=== PATIENT | male | born 1960 | race Caucasian/White ===

== ENCOUNTER 2024-10-09 12:28 | Outpatient (CLI) | payer OTHER, SELFPAY ==
--- NOTE | ~2024-10-09 | US_ITS ---
EXAMINATION: US FNA w image guidance DATE: 10/09/2024 13:41 INDICATION: Thyroid nodule. TECHNIQUE: The procedure and its benefits and risks were discussed with the patient. Risks specifically discusse d included bleeding. The patient verbalized understanding of the risks and agreed to proceed. The nec k was prepped and draped in the usual sterile manner. 1% lidocaine was used for local anesthesia. 6 passes were made with a 25G needle into the lesion under ultrasound guidance. There were no immedia te complications. FINDINGS: Grayscale ultrasound images demonstrate needles advanced into a 1.7 cm nodule in inferior right thyro id lobe for biopsy. IMPRESSION: 1. Ultrasound-guided fine needle aspiration of a right thyroid nodule. Reviewed, dictated and finalized at location A. TION SUPERVISOR
--- OUTSIDE RECORDS SUMMARY | 2024-10-09 14:06 | XMS_ITS | Encounter Summary ---
Author Organization [facility] Address [address] [place] [address] Care Team Providers Care Workforce Manager Name Role Phone Gabbi Parsons APRN Primary Care Provider +1- [phone] Encounter Details Date Type Department Care Team (Late st Contact Info) Description 02/05/2023 Abstract [facility] [address] Alden Guevara MA Social History Tobacco Use Types Packs/Day Years Used Date Smoking Tobacco: Former Cigarettes 2 44 1 976 - 2020 Pipe Cigars Smokeless Tobacco: Never Alcohol Use Standard Drinks/Week Comments Yes 0 (1 standard drink = 0.6 oz pure alcohol) up to a 24 pack of beer per week- depends on the day or week AUDIT-C Answer Date Recorded Frequency of Alcohol Consumption 4 or more times a week 10/28/2018 Average Number of Drinks 3 or 4 019 Frequency of Binge Drinking Less than monthly PHQ-2 Answer Date Recorded Patient Health Questionnaire-2 Score 0 12/11/2022 Education Answer Date Recorded What is the highest level of school you have completed or the highest degree you have received? Some college, no degree 10/28/2018 Sex and Gender Information Value Date Recorded Sex Assigned at Not on file Legal Sex Male 5:25 PM CDT Gender Identity Not on file Sexual Orientation Not on file COVID-19 Exposure Response Date Recorded In the last 10 days, have yo u been in contact with someone who was confirmed or suspected to have Coronavirus/COVID-19? Unable to assess 01/21/2023 2:07 PM CDT documented as of this encounter Plan of Treatment Upcoming Encounters Date Type Department Care Team (Late st Contact Info) Description 11/23/2024 11:20 AM CDT Office Visit [facility] - [place] [address] [place] [address] Gabbi Parsons, LUIS MIGUEL [address] [facility] [address] [place] [address] 02/05/2025 11:20 AM CDT Office Visit [facility] Multispecialty Care - [facility] [address] [facility] [place] [address] Wili Andrade DO [address] [facility] [address] [place] [address] 05/28/2025 9:30 AM CDT Office Visit [facility] [address] [place] [phone] Chris Vera MD [address] [place] [address] documented as of this encounter Procedures Procedure Name Priority Date/Time Associated Diagnosis Comments BNP Routine 02/04/2023 BASIC METABOLIC PANEL Routine 02/04/2023 documented in this encounter Results * BNP (02/04/2023) B TYPE NATRIURETIC PEPTIDE 7 02/04/2023 Narrative Resulting Agency Comment us Default History Genericprovider LABORATORY Edited Result - Final * BASIC METABOLIC PANEL (02/04/2023) SODIUM S/P/B 140 POTASSIUM S/P/B 3.9 CO2 31 CHLORIDE S/P/B 101 GLUCOSE 128 mg/dL CALCIUM S/P/B 9.0 BUN 15 CREATININE S/P/B 1.07 0.7 - 1.3 EGFR NON-AFR. AMER. 79 <=90 02/04/2023 us Default History Genericprovider LABORATORY Final Result documented in this encounter Visit Diagnoses Not on filedocumented in this encounter Additional Health Concerns Assessment Noted Time PHQ-9 Depression Total Score: 1 11/24/19 23 2:37 PM CDT documented as of this encounter Care Teams Workforce Manager Relationship Specialty Start Date End Date Gabbi Parsnos APRN [address] [facility] [address] [place] [id number] PCP - General NURSE PRACTITIONER 12/07/22 documented as of this encounter
--- OUTSIDE RECORDS SUMMARY | 2024-10-09 14:06 | XMS_ITS | Encounter Summary ---
Author Organization [facility] Address [address] [place] [address] Care Team Providers Care Grey Goods Marker Name Role Phone Gabbi Parsons APRN Primary Care Provider +1- [phone] Encounter Details Date Type Department Care Team (Late st Contact Info) Description 03/01/2023 [employer] Shopping Cart Software Message Enc [facility], [address] [address] [place], [facility] Provider Stress test Social History Tobacco Use Types Packs/Day Years [...] on file Sexual Orientation Not on file documented as of this encounter Plan of Treatment Upcoming Encounters Date Type Department Care Team (Late st Contact Info) Description 11/23/2024 11:20 AM CDT Office Visit [facility] Family & Internal Medicine - [place] [address] [place] [address] Gabbi Parsons APRN [address] [facility] [address] [place] [address] 02/05/2025 11:20 AM CDT Office Visit [facility] - [facility] [address] [facility] [place] [address] Wili Andrade DO [address] [facility] [address] [place] [address] 05/28/2025 9:30 AM CDT Office Visit [facility] [address] [place] [phone] Chris Vera MD [address] [facility] [address] [place] [address] documented as of this encounter Visit Diagnoses Not on filedocumented in this encounter Additional Health Concerns Assessment Noted Time PHQ-9 Depression Total Score: 1 11/24/19 2:37 PM CDT documented as of this encounter Care Teams Grey Goods Marker Relationship Specialty Start Date End Date Gabbi Parsons APRN [address] [facility] [address] [place] [address] PCP - General NURSE PRACTITIONER 12/07/22 documented as of this encounter
--- OUTSIDE RECORDS SUMMARY | 2024-10-09 14:06 | XMS_ITS | Encounter Summary ---
Author Organization [facility] Address [address] [place] [address] Care Team Providers Care Invasive Manager Name Role Phone Gabbi Parsons APRN Primary Care Provider +1- [phone] Encounter Details Date Type Department Care Team (Late Contact Info) Description 03/01/2023 [employer] Message Enc [facility], [address] [address] [facility] Provider CTA scoring Social History Tobacco Use Types Packs/Day Years [...] Description 11/23/2024 11:20 AM CDT Office Visit [facility] Medicine - [place] [address] [place] [address] Gabbi Parsons APRN [address] [facility] [address] [place] [address] 02/05/2025 11:20 AM CDT Office Visit [facility] Multispecialty Care - [facility] [address] [facility] [place] [address] Wili Andrade DO [address] [facility] [address] [place] [address] 05/28/2025 9:30 AM CDT Office Visit [facility] [address] [place] [phone] Chris Vera MD [address] [facility] [place] [address] documented as of this encounter Visit Diagnoses Not on filedocumented in this encounter Additional Health Concerns Assessment Noted Time PHQ-9 Depression Total Score: 1 11/24/19 2:37 PM CDT documented as of this encounter Care Teams Invasive Manager Relationship Specialty Start Date End Date Gabbi Parsons APRN [address] [facility] [address] [place] [address] PCP - General NURSE PRACTITIONER 12/07/22 documented as of this encounter
--- OUTSIDE RECORDS SUMMARY | 2024-10-09 14:06 | XMS_ITS | Clinical Summary ---
Author Organization [facility] Address [address] [place] [address] Care Team Providers Care Knitter Operator Name Role Phone Gabbi Parsons APRN Primary Care Provider [phone] Allergies Active Allergy Reactions Criticality Noted Date Comments Morphine Hallucinations Medium 01/23/2013 Becomes angry Medications aspirin EC (ECOTRIN) 81 MG tablet Take 1 tablet (81 mg total) by mouth daily. 6 Active Cyanocobalamin (VITAMIN B12) 1000 MCG Tab CR Take 1 tablet by mouth daily. 7 Active Multiple Vitamin (ONE-A-DAY MENS) Tab Take 1 tablet by mouth daily. 6 Active fish oil 1000 MG Cap capsule Take 2 capsules (2,000 mg total) by mouth daily. Active albuterol sulfate HFA 108 (90 Base) MCG/ACT inhalerIndicatio ns:Centrilobular emphysema (CMS/HCC HHS/HCC),DAUGHERTY (dyspnea on exertion) Inhale 2 puffs into the lungs every 6 (six) hours as needed for Wheezing. 6.7 g 6 4 Active spironolactone (ALDACTONE) 25 MG tablet TAKE 1 TABLET(25 MG) BY MOUTH DAILY 90 tablet 3 4 Active tirzepatide (ZEPBOUND) 2.5 MG/0.5ML injectionIndicat ions:Weight Loss Inject 2.5 mg into the skin once a week. Indications: Weight Loss 6.5 mL 5 Active budesonide-glyco pyrrolate-formot nicolasa (Mappyfriends) 160-9-4.8 MCG/ACT inhalerIndicatio ns:Chronic obstructive pulmonary disease, unspecified COPD type ([facility]) Inhale 2 puffs into the lungs 2 (two) times a day. 10.7 g 3 5 Active Active Problems Problem Noted Date Diagnosed Date Thyroid nodule 08/25/2024 Bilateral carpal tunnel syndrome 02/29/2024 Assessment & Plan (02/29/2024 3:32 PM CDT): Recommendation at this time, we went over the risks and benefits, as well as the alternatives. All questions are answered. Before working up his neck, he would like to proceed with his wrist, get the carpal tunnel and Guyon canal released on the left wrist. We will have him follow up after that. If there's no significant improvement then we can certainly get him set up for an MRI of his neck. 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 Steroid is injected today. Meloxicam 15 mg once daily. We offered splinting but he has a fairly large wrist and hand operations probably would not fit. Follow-up in 6 weeks if no significant improvement. Extensor intersection syndrome of left wrist Assessment & Plan (11/03/2021 9:04 PM CDT): We will treat the de Quervain's first. Patient would like to avoid splinting. Begin meloxicam. Abnormal blood sugar 10/18/2019 Bronchitis 10/18/2019 Right foot pain 06/08/2019 Plantar fasciitis of right foot 06/08/2019 BMI 50.0-59.9, adult ([facility]) 9 Hyperthyroidism 10/29/2018 Hypoparathyroidism, unspecif ied hypoparathyroidism type ([facility]) 10/28/2018 Vitamin D deficiency 03/09/2017 Arthritis 01/25/2017 Bulge of lumbar disc without myelopathy 01/26/20 17 Degenerative disc disease, lumbar 01/25/2017 Spondylolisthesis, grade 1 01/25/2017 Sciatica 12/17/2016 Obesity 09/11/2016 Anemia 03/09/2016 Vitamin B12 deficiency 03/06/2016 Eczema 09/13/2015 Hyperlipidemia 02/06/2013 Resolved Problems Problem Noted Date Diagnosed Date Resolved Date Prostate cancer screening 10/18/2019 Encounters Date Type Department Care Team Description 09/19/2024 11:46 AM SENIOR PAYROLL MANAGER - 09/19/2024 11:59 PM SENIOR PAYROLL MANAGER Hospital Encounter [facility] Ultrasound [address] [place] [address] Ky Morataya MD Discharge Disposition: Home or Self Care (Routine Discharge) 09/19/2024 Travel 09/06/2024 Scan Proxeon INFO SRVCS Scanned, [facility] 08/25/2024 8:20 AM SENIOR PAYROLL MANAGER Office Visit [facility] [address] [phone] Gabbi Parsons APRN Follow Up (Discuss weight loss and medications) 08/25/2024 Travel 08/07/2024 Orders Only [facility] [address] [phone] Gabbi Parsons APRN 07/27/2024 10:23 AM SENIOR PAYROLL MANAGER - 07/27/2024 11:59 PM SENIOR PAYROLL MANAGER Hospital Encounter [facility] Occupational Therapy [address] [place] [address] Gabbi Parsons APRN Smith, Kimberly M, OT Hand Pain Discharge Disposition: Home or Self Care (Routine Discharge) 07/27/2024 Travel 07/25/2024 10:41 AM SENIOR PAYROLL MANAGER - 07/25/2024 11:59 PM SENIOR PAYROLL MANAGER Hospital Encounter [facility] [address] [address] [address] Ky Morataya MD Discharge Disposition: Home or Self Care (Routine Discharge) 07/25/2024 Travel 07/24/2024 9:50 AM SENIOR PAYROLL MANAGER - 07/24/2024 11:59 PM SENIOR PAYROLL MANAGER Hospital Encounter [facility] [address] [place] [address] Gabbi Parsons APRN Smith, Kimberly M, OT Hand Pain Discharge Disposition: Home or Self Care (Routine Discharge) 07/24/2024 Travel 07/21/2024 9:59 AM SENIOR PAYROLL MANAGER - 07/21/2024 11:59 PM SENIOR PAYROLL MANAGER Hospital Encounter [facility] [address] [place] [address] Gabbi Parsons APRN Smith, Kimberly M, OT Hand Pain Discharge Disposition: Home or Self Care (Routine Discharge) 07/21/2024 Travel 07/19/2024 [facility] [address] [phone] Wili Andrade DO Orders 07/18/2024 10:00 AM SENIOR PAYROLL MANAGER - 07/18/2024 11:59 PM SENIOR PAYROLL MANAGER Hospital Encounter [facility] [id number] [place] [address] Gabbi Parsons APRN Smith, Kimberly M, OT Hand Pain Discharge Disposition: Home or Self Care (Routine Discharge) 07/18/2024 Travel 07/11/2024 11:06 AM SENIOR PAYROLL MANAGER - 07/11/2024 11:59 PM SENIOR PAYROLL MANAGER Hospital Encounter [facility] [address] [place] [address] Gabbi Parsons APRN Smith, Kimberly M, OT Hand Pain Discharge Disposition: Home or Self Care (Routine Discharge) 07/11/2024 Travel from Last 3 Months Immunizations Name Administration Dates Next Due Hepatitis A (Havrix [address]) 11/24/1996,1995 Influenza (Generic) 06/14/2002, 1,08/04/2000,06/19,05/22/1998,06/18/1997 MMR (MMRII) 02/03/1994 MODERNA COVID-19 (12+) MRNA, LNP-S, PF, 100 MCG/ 0.5 ML DOSE 09/30/2021,09/02/2021 Meningococcal (Menomune) 02/22/1997 Polio Opv (Generic) 11/22/1985 Td (TDVAX) 03/06/2002,04/16/1992 Td (Tenivac) preservative free 08/16/2006 Typhoid Vaccine, Akd 05/16/1984 Typhoid Vi Polysaccharide Va cc 25 Mcg/0.5Ml Im Soln 03/15/2000,05/22/1998,04/19/1996 Yellow Fever (YF- Vax) 04/19/1996 Family History Medical History Relation Comments No Known Problems Father degenerative eye disease Mother Cancer Sister Breast and bone Relation Status Comments Father Mother Alive Sister Social History Tobacco Use Types Packs/Day Years Used Date Smoking Tobacco: Former Cigarettes Q uit: 1999 Pipe Cigars Smokeless Tobacco: Never Tobacco Cessation:Counseling Given: Yes Alcohol Use Standard Drinks/Week Comments Yes 20 (1 standard drink = 0.6 oz pure alcohol) up to a 24 pack of beer per week- depends on the day or week AUDIT-C Answer Date Recorded Frequency of Alcohol Consumption 4 or more times a week 10/28/2018 Average Number of Drinks 3 or 4 019 Frequency of Binge Drinking Less than monthly PHQ-2 Answer Date Recorded Patient Health Questionnaire-2 Score 0 08/25/2024 Education Answer Date Recorded What is the highest level of school you have completed or the highest degree you have received? Some college, no degree 10/28/2018 Sex and Gender Information Value Date Recorded Sex Assigned at Not on file Legal Sex Male 5:25 PM CDT Gender Identity Not on file Sexual Orientation Not on file Last Filed Vital Signs Vital Sign Reading Time Taken Comments Blood Pressure 136/86 08/25/2024 8:13 AM SENIOR PAYROLL MANAGER Pulse 75 08/25/2024 8:13 AM SENIOR PAYROLL MANAGER Temperature 36.5 C (97.7 F) 08/25/2024 8:13 AM SENIOR PAYROLL MANAGER Respiratory Rate 22 08/25/2024 8:13 AM SENIOR PAYROLL MANAGER Oxygen Saturation 97% 08/25/2024 8:13 AM SENIOR PAYROLL MANAGER Inhaled Oxygen Concentration - - Weight 170.6 kg (376 lb) 08/25/2024 8:13 AM SENIOR PAYROLL MANAGER Height 185.4 cm (6' 1 ) 08/25/2024 8:13 AM SENIOR PAYROLL MANAGER Body Mass Index 49.61 08/25/2024 8:13 AM SENIOR PAYROLL MANAGER Plan of Treatment Upcoming Encounters Date Type Department Care Team (Late st Contact Info) Description 11/23/2024 11:20 AM CDT Office Visit [facility] - [place] [address] [place] [phone] Gabbi Parsons APRN [address] [facility] [address] [place], [place] [phone] 02/05/2025 11:20 AM CDT Office Visit [facility] - [facility] [place] [address] [place] [phone] Wili Andrade DO [address] [place] [address] 05/28/2025 9:30 AM CDT Office Visit [facility] [address] [place] [phone] Chris Vera MD [address] [place], [place] [phone] Health Maintenance Due Date Last Done Comments Pneumococcal Vaccine: Pediatrics (0 to 5 Years) and At-Risk Patients (6 to 64 Years) (1 of 2 - PCV) 1967 Hepatitis C 1979 Annual Physical 06/02/2022 06/02/2021 COVID-19 Vaccine ( season) 2024 09/30/2021, 09/02/2021 Influenza Adult (#1) 2024 06/14/2002, 05/31/2001, 08/04/2000, Additional history exists DTaP, Tdap and Td Vaccines (1 - Tdap) 01/17/2025 08/16/2006, 03/06/2002, 04/16/1992 Postponed from 08/17/2006 (Patient Refused) RSV Immunization or 60+ Years (1 - Risk 60-74 years 1-dose series) 01/17/2025 Postponed fro m 2021 (Patient Refused) Zoster Vaccines (1 of 2) 01/17/2025 Pos tponed from 2011 (Patient Refused) Colorectal Cancer Screening Colonoscopy (10 Years) 05/04/2027 05/04/2017 Meningococcal Vaccine Aged Out 02/22/1997 No velia alyssa eligible based on patient's age to complete this topic PHQ-2 (Physician [place]) Completed 08/25/2024 Meningococcal B Vaccine Aged Out No l onger eligible based on patient's age to complete this topic RSV Immunizations Under 20 Months Aged Out No longer eligible based on patient's age to complete this topic Medical Devices Implanted Type Area Daytime Babysitter Device Identifier Shelf Expiration Date Model / Serial / Lot Screw Screw Right: Finger Procedures Procedure Name Priority Date/Time Associated Diagnosis Comments US THYROID Routine 09/19/2024 12:56 PM SENIOR PAYROLL MANAGER Thyrotoxicosis Non-toxic multinodular goiter US GD THYROID FINE NDL ASPIR Routine 07/25/2024 11:52 AM SENIOR PAYROLL MANAGER Multiple thyroid nodules CYTOLOGY GENERIC Routine 07/25/2024 12:0 0 AM SENIOR PAYROLL MANAGER Multiple thyroid nodules COLONOSCOPY GENERIC (SCAN ORDER) Routine 05/04/2017 from Last 3 Months or Most Recently Relevant to Health Maintenance Results * US THYROID (09/19/2024 12:56 PM SENIOR PAYROLL MANAGER) Anatomical Region Laterality Modality Neck Ultrasound 09/22/2024 5:04 PM SENIOR PAYROLL MANAGER Impressions 09/22/2024 5:14 PM SENIOR PAYROLL MANAGER IMPRESSION: 1. Bilateral thyroid nodules as above. Interval decrease in size of dominant nodule in inferior left lobe, status post biopsy. ACR TI-RADS recommendations: TR5, highly suspicious (greater than or equal to 7 points) - FNA if greater than or equal to 1 cm, follow-up if 0.5-0.9 cm every year for 5 years TR4, moderately suspicious (4-6 points) - FNA if greater than or equal to 1.5cm, follow-up if 1-1.4 cm in 1, 2, 3 and 5 years TR3, mildly suspicious (3 points) - FNA if greater than or equal to 2.5cm, follow-up if 1.5-2.4 cm in 1, 3 and 5 years TR2, not suspicious (2 points) and TR1, benign (0 points) - No FNA or follow-up * ACR TI-RADS recommends no more than two nodules with the highest ACR TI-RADS total point should be biopsied and no more than four nodules should be followed. ACR TI-RADS (Thyroid Imaging and Reporting Data System) is a structured system for interpreting and reporting thyroid imaging studies with management guidelines. https://www.acr.org/Clinical-Resources/Ubtfnkuzt-rzq-Ectk-Systems/TI-RADS Ordered By: KY MORATAYA Interpreted By: Reba Tafoya, 09/22/2024 5:04 PM Narrative 09/22/2024 5:14 PM SENIOR PAYROLL MANAGER [facility] [address] [place] [address] IMAGING STUDIES: US THYROID DATE: 09/19/2024 12:01 PM CLINICAL HISTORY: Thyrotoxicosis. Nontoxic multinodular goiter. BENIGN BIOPSY OF LARGEST NODULE IN THE LEFT LOBE ON 07/25/2024 Comparison: 07/25/2024. 03/02/2024 FINDINGS: RIGHT THYROID GLAND MEASURES 6.9 x 2.9 x 2.8 cm. LEFT THYROID GLAND MEASURES 6.9 x 3.4 x 3.8 cm. HETEROGENEOUS ECHOTEXTURE TO THE THYROID GLAND. GROSSLY NORMAL COLOR FLOW. WITHIN THE INFERIOR RIGHT LOBE OF THE THYROID GLAND THERE ARE 2 ADJACENT FAIRLY WELL-DEFINED INTERMEDIATE ECHOGENIC SOLID NODULES. NO ABNORMAL COLOR FLOW. NO DISTINCT ECHOGENIC FOCI.. LARGEST MEASURES 1.9 X 1.4 X 1.6 CM. PRIOR MEASUREMENT OF 1.6 X 1.6 X 1.7 CM. TR 3. FOLLOW-UP BELOW.. WITHIN THE INFERIOR LEFT LOBE, THERE IS SLIGHTLY ILL-DEFINED HYPERECHOIC NODULE. NO ABNORMAL COLOR FLOW. THIS WAS THE NODULE THAT WAS BIOPSIED. NO ECHOGENIC FOCI. MEASURES 3.7 X 3.1 X 2.9 CM. PRIOR MEASUREMENT OF 4.2 X 3.1 X 3.5 CM.. TR 3. BIOPSY ALREADY.. PERFORMED. ALSO WITHIN THE INFERIOR LEFT LOBE THERE IS A WELL-DEFINED INTERMEDIATE ECHOGENIC NODULE MEASURING 1.1 X 1.0 X 1.1 CM. SAME MEASUREMENT BEFORE. TR 3 Procedure Note Ramon Tafoya MD - 09/22/2024 [facility] [address] [address] [place] [phone] IMAGING STUDIES: US THYROID DATE: 09/19/2024 12:01 PM CLINICAL HISTORY: Thyrotoxicosis. Nontoxic multinodular goiter. BENIGNBIOPSY OF LARGEST NODULE IN THE LEFT LOBE ON 07/25/2024 Comparison: 07/25/2024. 03/02/2024 FINDINGS: RIGHT THYROID GLAND MEASURES 6.9 x 2.9 x 2.8 cm. LEFT THYROID GLAND MEASURES 6.9 x 3.4 x 3.8 cm. HETEROGENEOUS ECHOTEXTURE TO THE THYROID GLAND. GROSSLY NORMAL COLORFLOW. WITHIN THE INFERIOR RIGHT LOBE OF THE THYROID GLAND THERE ARE 2 ADJACENTFAIRLY WELL-DEFINED INTERMEDIATE ECHOGENIC SOLID NODULES. NO ABNORMALCOLOR FLOW. NO DISTINCT ECHOGENIC FOCI.. LARGEST MEASURES 1.9 X 1.4 X 1.6CM. PRIOR MEASUREMENT OF 1.6 X 1.6 X 1.7 CM. TR 3. FOLLOW-UP BELOW.. WITHIN THE INFERIOR LEFT LOBE, THERE IS SLIGHTLY ILL-DEFINED HYPERECHOICNODULE. NO ABNORMAL COLOR FLOW. THIS WAS THE NODULE THAT WAS BIOPSIED. NOECHOGENIC FOCI. MEASURES 3.7 X 3.1 X 2.9 CM. PRIOR MEASUREMENT OF 4.2 X3.1 X 3.5 CM.. TR 3. BIOPSY ALREADY.. PERFORMED. ALSO WITHIN THE INFERIOR LEFT LOBE THERE IS A WELL-DEFINED INTERMEDIATEECHOGENIC NODULE MEASURING 1.1 X 1.0 X 1.1 CM. SAME MEASUREMENT BEFORE.TR 3 IMPRESSION: 1. Bilateral thyroid nodules as above. Interval decrease in size ofdominant nodule in inferior left lobe, status post biopsy. ACR TI-RADS recommendations: TR5, highly suspicious (greater than or equal to 7 points) - FNA ifgreater than or equal to 1 cm, follow-up if 0.5-0.9 cm every year for 5years TR4, moderately suspicious (4-6 points) - FNA if greater than or equalto 1.5cm, follow-up if 1-1.4 cm in 1, 2, 3 and 5 years TR3, mildly suspicious (3 points) - FNA if greater than or equal to2.5cm, follow-up if 1.5-2.4 cm in 1, 3 and 5 years TR2, not suspicious (2 points) and TR1, benign (0 points) - No FNA orfollow-up * ACR TI-RADS recommends no more than two nodules with the highest ACRTI-RADS total point should be biopsied and no more than four nodulesshould be followed. ACR TI-RADS (Thyroid Imaging and Reporting Data System) is a structuredsystem for interpreting and reporting thyroid imaging studies withmanagement guidelines. https://www.acr.org/Clinical-Resources/Gvztbgtya-ulq-Ieci-Systems/TI-RADS Ordered By: KY MORATAYA Interpreted By: Reba Tafoya, 09/22/2024 5:04 PM us Ky Morataya MD ULTRASOUND Final Result * US GD THYROID FINE NDL ASPIR (07/25/2024 11:52 AM SENIOR PAYROLL MANAGER) Anatomical Region Laterality Modality Neck Ultrasound, Radi ographic Imaging 07/25/2024 11:2 0 AM SENIOR PAYROLL MANAGER Impressions 07/25/2024 11:37 AM SENIOR PAYROLL MANAGER =====IMPRESSION:===== Procedure note for left thyroid lobe 3.9 cm nodule 25-gauge FNA performed with ultrasound guidance. Ordered By: KY MORATAYA Interpreted By: Darby Lebron MD, 07/25/2024 11:20 AM Narrative 07/25/2024 11:37 AM SENIOR PAYROLL MANAGER [facility] [address] [place], [place] [address] Procedure: Ultrasound guided thyroid fine-needle aspiration. Exam date/time: 07/25/2024 10:58 AM Indication: 7 female presenting for left thyroid lobe nodule fine-needle aspiration sample. Comparison: Ultrasound thyroid 03/02/2024 Procedure and findings: Informed verbal and written consent was obtained from the patient/patient's medical power of assistant attorney general. The procedure was discussed including the rationale, alternatives, benefits and risks including but not limited to bleeding, infection and damage to adjacent structures. Patient was positioned supine on the stretcher. Initial survey ultrasound was performed in an inferior left thyroid lobe the nodule measuring 2.9 x 3.9 x 2.7 cm meeting criteria for sampling. This was targeted ultrasound. Timeout was performed. The patient's neck was prepped and draped in usual sterile fashion. 1% lidocaine was administered for local anesthesia. Multiple 25-gauge needle fine-needle aspiration (FNA) samples were acquired from the nodule under real-time ultrasound guidance. A total of 4 passes were made including for Affirma testing. The sample were collected and evaluated for adequacy by the global account manager on site. A small sterile dressing was placed. Patient tolerated the procedure well. There were no immediate complications. Scaffold Setter: Dr. eLbron Procedure Note Darby Lebron MD - 07/25/2024 [facility] [address] [place], [place] [address] Procedure: Ultrasound guided thyroid fine-needle aspiration. Exam date/time: 07/25/2024 10:58 AM Indication: 7 female presenting for left thyroid lobe nodule fine- needleaspiration sample. Comparison: Ultrasound thyroid 03/02/2024 Procedure and findings: Informed verbal and written consent was obtained from thepatient/patient's medical power of assistant attorney general. The procedure was discussedincluding the rationale, alternatives, benefits and risks including butnot limited to bleeding, infection and damage to adjacent structures. Patient was positioned supine on the stretcher. Initial survey ultrasoundwas performed in an inferior left thyroid lobe the nodule measuring 2.9 x3.9 x 2.7 cm meeting criteria for sampling. This was targetedultrasound. Timeout was performed. The patient's neck was prepped and draped in usual sterile fashion. 1%lidocaine was administered for local anesthesia. Multiple 25-gauge needlefine-needle aspiration (FNA) samples were acquired from the nodule underreal-time ultrasound guidance. A total of 4 passes were made including forAffirma testing. The sample were collected and evaluated for adequacy bythe global account manager on site. A small sterile dressing was placed. Patient tolerated the procedure well.There were no immediate complications. Scaffold Setter: Dr. Lebron =====IMPRESSION:===== Procedure note for left thyroid lobe 3.9 cm nodule 25-gauge FNA performedwith ultrasound guidance. Ordered By: KY MORATAYA Interpreted By: Darby Lebron MD, 07/25/2024 11:20 AM Ky Morataya MD ULTRASOUND Final Result * CYTOLOGY GENERIC (07/25/2024 12:00 AM SENIOR PAYROLL MANAGER) CYTOLOGY OTHER [facility] Department of Laboratory Medicine [address] [place] [id number] , [id number] Pathology Report FNA Cytology Report Name: CHRISTIAN AGUILAR Specimen #: [id number] Age: 11 1960 (Age: 64) Location: [facility] Sex: M Procedure Date: 07/25/2024 Hospital #: [id number] Date Received: 07/26/2024 Date Reported: 07/26/2024 Provider: KY MORATAYA MD Source: THYROID, LEFT, FINE NEEDLE ASPIRATION Clinical History: LEFT THYROID 4.0 CM FINAL DIAGNOSIS: Thyroid, left, fine-needle aspiration: -Satisfactory for evaluation -Negative for malignant cells -Cytologic findings consistent with benign thyroid nodule Gross Description: PASSES MADE: 2 (plus one additional pass for potential AFIRMA testing) SPECIMEN RECEIVED: 2 Diff-Quik slides, 2 alcohol-fixed slides SLIDES PREPARED: 4 smears, all slides microscopically examined by a pathologist STAINS: Papanicolaou, Diff-Quik Initial cytologic screening, interpretation, and sign out were performed at [facility], [address] [place] [address], Psychiatric hospital Intraoperative Diagnosis: Thyroid, left, fine needle aspiration, immediate evaluation for adequacy Passes 1-2: adequate Passes 3-4: AFIRMA Rapid on-site consultation performed by ORION Mullins (ASCP) at [facility], [address] [place] [address] Electronically Signed Out CANDIS COOK MD [facility] 07/25/2024 07/26/2024 8:0 3 AM SENIOR PAYROLL MANAGER Comment:THYROID, LEFT, FINE NEEDLE ASPIRATION us Ky Morataya MD PATHOLOGY/CYTOLOGY ORDERABLE S Final Result Performing Organization Address City/[facility]/ZIP Co de Phone Number [facility] [address] [place] [address], [place] [phone] * COLONOSCOPY (05/04/2017) us Documents Scanned SCANNING Final Result [facility] Last 3 Months or Most Recently Relevant to Health Maintenance Insurance Care Teams Knitter Operator Relationship Specialty Start Date End Date Gabbi Parsons APRN [id number] [place] [address] PCP - General NURSE PRACTITIONER 12/07/22
== END 2024-10-09 12:29 | disposition home or self-care (01) ==
PROVIDERS: PCP Registered Nurse; Visit Provider Internal Medicine
DX: D34 Benign neoplasm of thyroid gland (principal); E04.2 Nontoxic multinodular goiter
CPT/HCPCS: 10005; 88172; 88173; 88305